=== PATIENT | male | born 1975 | race Caucasian/White ===

== ENCOUNTER 2020-04-21 12:46 | Outpatient (CLI) | payer OTHER ==
[2020-04-21] MEDS ORDERED: ROPivacaine/PF 0.2%, 10 ML ONE (12:56)
[2020-04-21] MEDS ORDERED: LIDOCAINE-MPF 1%, 5ML ONE (12:56)
[2020-04-21] MEDS ORDERED: OMNIPAQUE 300 MG/ML, 10ML VIAL ONE (14:35)
[2020-04-21] MEDS ORDERED: GADOTERATE 2.5 MMOL/5 ML VIAL ONE (14:37)
== END 2020-04-21 23:59 | disposition home or self-care (01) ==
LOC: RAD 12:46
PROVIDERS: ATTEND Orthopaedic Surgery Adult Reconstructive Orthopaedic Surgery
DX: M25.511 Pain in right shoulder (principal); M19.011 Primary osteoarthritis, right shoulder
CPT/HCPCS: 23350; 73040; 73222; A9575; J2795; Q9967